=== PATIENT | male | born 1945 | race Two or more races ===

== ENCOUNTER → 2023-01-29 | Outpatient (CLI) | payer OTHER ==
[2023-01-29 08:19] LABS: Basophils # (auto) 0 10 ^3/uL (0-0.2); Eosinophils # (auto) 0.5 10 ^3/uL (0-0.8); Hematocrit 39.6 % (41.0-53.0); Lymphocytes # (auto) 0.9 10 ^3/uL (0.4-5.4); Monocytes # (auto) 0.5 10 ^3/uL (0-1.3)
[2023-01-29 08:21] LABS: Basophils % (auto) 0.7 % (0.0-2.0); Eosinophils % (auto) 8.3 % (0.0-7.0); Hemoglobin 12.6 g/dL (13.5-17.5); Lymphocytes % (auto) 14.8 % (10.0-50.0); Mean Corpuscular Hemoglobin 24.4 pg (28.0-32.0); Mean Corpuscular Hgb Conc. 31.8 g/dL (32.0-36.0); Monocytes % (auto) 8.7 % (0.0-12.0); Neutrophils % (auto) 67.5 % (37.0-80.0); Red Blood Cells 5.14 10^6/uL (4.5-5.90); Red Cell Distribution Width 16.1 % (11.8-14.3); White Blood Cell 5.9 10^3/uL (4.4-10.8)
[2023-01-29 08:40] LABS: Alanine Aminotransferase 14 U/L (7-40); Albumin 4.4 g/dL (3.2-4.8); Alkaline Phosphatase 87 U/L (46-116); Anion Gap 4 (5-15); Aspartate Aminotransferase 16 U/L (13-40); BUN/Creatinine Ratio 12.2 (10.0-20.0); Bilirubin, Total 0.7 mg/dL (0.2-1.0); Blood Urea Nitrogen 10 mg/dL (9-23); Calcium 9.3 mg/dL (8.5-10.1); Carbon Dioxide 28 mmol/L (20-30); Chloride 108 mmol/L (98-107); Cholesterol 195 mg/dL (< 200); Glucose 105 mg/dL (74-106); HDL Cholesterol 45 mg/dL (40-59); LDL Cholesterol 129 mg/dL (< 100); Potassium 4.6 mmol/L (3.5-5.1); Sodium 140 mmol/L (136-145); Triglycerides 180 mg/dL (< 150)
[2023-01-29 08:41] LABS: Total Protein 6.8 g/dL (5.7-8.2)
[2023-01-29 08:42] LABS: Urine Bacteria NONE SEEN /hpf (None Seen); Urine Blood Negative /uL (Negative); Urine Clarity Clear (Clear); Urine Protein, UAD Negative (Negative); Urine Urobilinogen Normal (Negative); Urine WBC <1 /hpf (0 - 3); Urine pH 5.5 (5.0-8.0)
[2023-01-29 08:54] LABS: Urine Color Straw (Yellow)
[2023-01-29 09:09] LABS: Uric Acid 8.4 mg/dL (3.7-9.2)
[2023-01-29 09:10] LABS: Magnesium 2.1 mg/dL (1.6-2.6)
[2023-01-29 14:42] LABS: Prostate Specific Antigen 1.39 ng/mL (0.0-4.0)
[2023-01-29 14:46] LABS: Folate (Folic Acid) 17.45 ng/mL (>5.38)
== END | disposition home or self-care (01) ==
LOC: LAB 07:56
PROVIDERS: ATTEND Internal Medicine
DX: E61.2 Magnesium deficiency (principal); E78.41 Elevated Lipoprotein(a); R68.89 Other general symptoms and signs; E79.0 Hyperuricemia without signs of inflammatory arthritis and tophaceous disease; R82.90 Unspecified abnormal findings in urine; R82.991 Hypocitraturia; R82.79 Other abnormal findings on microbiological examination of urine; D51.9 Vitamin B12 deficiency anemia, unspecified; E55.9 Vitamin D deficiency, unspecified; R94.6 Abnormal results of thyroid function studies
CPT/HCPCS: 36415; 80053; 80061; 81001; 82306; 82607; 82746; 83036; 83735; 84153; 84443; 84550; 85025; 87086

== ENCOUNTER → 2023-08-22 | Outpatient (CLI) | payer OTHER ==
[2023-08-22 08:48] LABS: Urine Bacteria None Seen /hpf (None Seen)
[2023-08-22 08:53] LABS: Basophils # (auto) 0 10 ^3/uL (0-0.2); Eosinophils # (auto) 0.4 10 ^3/uL (0-0.8); Lymphocytes # (auto) 0.9 10 ^3/uL (0.4-5.4); Monocytes # (auto) 0.5 10 ^3/uL (0-1.3); Monocytes % (auto) 8.5 % (0.0-12.0)
[2023-08-22 08:56] LABS: Basophils % (auto) 0.6 % (0.0-2.0); Eosinophils % (auto) 6.5 % (0.0-7.0); Hematocrit 37.8 % (41.0-53.0); Hemoglobin 12.2 g/dL (13.5-17.5); Lymphocytes % (auto) 14.3 % (10.0-50.0); Mean Corpuscular Hemoglobin 26.2 pg (28.0-32.0); Mean Corpuscular Hgb Conc. 32.3 g/dL (32.0-36.0); Mean Corpuscular Volume 81.3 fL (80.0-100.0); Neutrophils # (auto) 4.4 10 ^3/uL (1.6-8.6); Neutrophils % (auto) 70.1 % (37.0-80.0); Red Blood Cells 4.64 10^6/uL (4.5-5.90); Red Cell Distribution Width 14.7 % (11.8-14.3); White Blood Cell 6.3 10^3/uL (4.4-10.8)
[2023-08-22 09:12] LABS: Urine Blood Negative /uL (Negative); Urine Clarity Clear (Clear); Urine Color Yellow (Yellow); Urine Mucus FEW (None Seen); Urine Protein, UAD Negative (Negative); Urine Specific Gravity 1.025 (1.001-1.035); Urine Urobilinogen Normal (Negative); Urine WBC <1 /hpf (0 - 3); Urine pH 5.5 (5.0-9.0)
[2023-08-22 09:35] LABS: Alanine Aminotransferase 14 U/L (7-40); Albumin 4.4 g/dL (3.2-4.8); Alkaline Phosphatase 84 U/L (46-116); Anion Gap 6 (5-15); Aspartate Aminotransferase 17 U/L (13-40); BUN/Creatinine Ratio 15.4 (10.0-20.0); Bilirubin, Total 0.6 mg/dL (0.2-1.0); Blood Urea Nitrogen 12 mg/dL (9-23); Calcium 9.5 mg/dL (8.5-10.1); Carbon Dioxide 27 mmol/L (20-30); Chloride 108 mmol/L (98-107); Cholesterol 203 mg/dL (< 200); Glucose 106 mg/dL (74-106); HDL Cholesterol 44 mg/dL (40-59); LDL Cholesterol 132 mg/dL (< 100); Potassium 4.6 mmol/L (3.5-5.1); Sodium 141 mmol/L (136-145); Total Protein 6.6 g/dL (5.7-8.2); Triglycerides 204 mg/dL (< 150)
[2023-08-22 12:39] LABS: Uric Acid 6.9 mg/dL (3.7-9.2)
[2023-08-22 13:09] LABS: Folate (Folic Acid) 14.94 ng/mL (>5.38)
== END | disposition home or self-care (01) ==
LOC: LAB 08:36
PROVIDERS: ATTEND Internal Medicine
DX: R79.89 Other specified abnormal findings of blood chemistry (principal); E78.9 Disorder of lipoprotein metabolism, unspecified; R68.89 Other general symptoms and signs; E61.2 Magnesium deficiency; E85.9 Amyloidosis, unspecified; R82.90 Unspecified abnormal findings in urine; R51.9 Headache, unspecified
CPT/HCPCS: 36415; 80053; 80061; 81001; 82306; 82607; 82746; 83036; 84443; 84550; 85025; 87086

== ENCOUNTER → 2023-10-26 | Outpatient (CLI) | payer OTHER ==
[2023-10-26 07:49] LABS: Urine Bacteria None Seen /hpf (None Seen)
[2023-10-26 07:56] LABS: Basophils # (auto) 0 10 ^3/uL (0-0.2); Hemoglobin 12.1 g/dL (13.5-17.5)
[2023-10-26 07:58] LABS: Basophils % (auto) 0.5 % (0.0-2.0); Eosinophils # (auto) 0.5 10 ^3/uL (0-0.8); Eosinophils % (auto) 6.7 % (0.0-7.0); Hematocrit 36.6 % (41.0-53.0); Lymphocytes % (auto) 14.7 % (10.0-50.0); Mean Corpuscular Hemoglobin 26.1 pg (28.0-32.0); Mean Corpuscular Hgb Conc. 33.1 g/dL (32.0-36.0); Mean Corpuscular Volume 78.9 fL (80.0-100.0); Monocytes # (auto) 0.7 10 ^3/uL (0-1.3); Monocytes % (auto) 9.7 % (0.0-12.0); Neutrophils # (auto) 4.7 10 ^3/uL (1.6-8.6); Neutrophils % (auto) 68.4 % (37.0-80.0); Nucleated Red Blood Cells % 0.2 %; Red Blood Cells 4.65 10^6/uL (4.5-5.90); Red Cell Distribution Width 15.3 % (11.8-14.3); White Blood Cell 6.9 10^3/uL (4.4-10.8)
[2023-10-26 08:22] LABS: Alanine Aminotransferase 14 U/L (7-40); Albumin 4.3 g/dL (3.2-4.8); Alkaline Phosphatase 81 U/L (46-116); Anion Gap 8 (5-15); Aspartate Aminotransferase 12 U/L (13-40); BUN/Creatinine Ratio 14.5 (10.0-20.0); Blood Urea Nitrogen 12 mg/dL (9-23); Calcium 9.3 mg/dL (8.5-10.1); Carbon Dioxide 24 mmol/L (20-30); Chloride 109 mmol/L (98-107); Cholesterol 200 mg/dL (< 200); Glucose 127 mg/dL (74-106); HDL Cholesterol 41 mg/dL (40-59); LDL Cholesterol 126 mg/dL (< 100); Magnesium 2.1 mg/dL (1.6-2.6); Potassium 4.5 mmol/L (3.5-5.1); Sodium 141 mmol/L (136-145); Triglycerides 187 mg/dL (< 150)
[2023-10-26 08:23] LABS: Bilirubin, Total 0.6 mg/dL (0.2-1.0); Total Protein 6.3 g/dL (5.7-8.2)
[2023-10-26 08:38] LABS: Urine Blood Negative /uL (Negative); Urine Clarity Clear (Clear); Urine Color Yellow (Yellow); Urine Mucus FEW (None Seen); Urine Protein, UAD Negative (Negative); Urine Specific Gravity 1.025 (1.001-1.035); Urine Urobilinogen Normal (Negative); Urine WBC <1 /hpf (0 - 3); Urine pH 5.5 (5.0-9.0)
[2023-10-26 09:02] LABS: Uric Acid 6.9 mg/dL (3.7-9.2)
[2023-10-26 11:25] LABS: Folate (Folic Acid) 11.64 ng/mL (>5.38)
== END | disposition home or self-care (01) ==
LOC: LAB 07:34
PROVIDERS: ATTEND Internal Medicine
DX: I10 Essential (primary) hypertension (principal); D50.9 Iron deficiency anemia, unspecified; R73.03 Prediabetes; Z68.29 Body mass index [BMI] 29.0-29.9, adult
CPT/HCPCS: 36415; 80053; 80061; 81001; 82306; 82607; 82746; 83036; 83735; 84443; 84550; 85025; 87086

== ENCOUNTER → 2024-06-10 | Outpatient (CLI) | payer OTHER | END | disposition home or self-care (01) | LOC: LAB 11:47 | PROVIDERS: ATTEND Internal Medicine | DX: E11.65 Type 2 diabetes mellitus with hyperglycemia (principal) | CPT/HCPCS: 36415; 83036 ==

== ENCOUNTER 2024-09-26 09:41 | Outpatient (CLI) | payer OTHER ==
[2024-09-26 10:05] LABS: Basophils # (auto) 0 10 ^3/uL (0-0.2); Basophils % (auto) 0.6 % (0.0-2.0); Eosinophils # (auto) 0.5 10 ^3/uL (0-0.8); Eosinophils % (auto) 5.9 % (0.0-7.0); Hematocrit 38.3 % (41.0-53.0); Hemoglobin 12.3 g/dL (13.5-17.5); Lymphocytes # (auto) 0.9 10 ^3/uL (0.4-5.4); Lymphocytes % (auto) 11.3 % (10.0-50.0); Mean Corpuscular Hemoglobin 24.4 pg (28.0-32.0); Mean Corpuscular Hgb Conc. 32.2 g/dL (32.0-36.0); Monocytes # (auto) 0.7 10 ^3/uL (0-1.3); Monocytes % (auto) 8.3 % (0.0-12.0); Neutrophils # (auto) 5.8 10 ^3/uL (1.6-8.6); Neutrophils % (auto) 73.9 % (37.0-80.0); Nucleated Red Blood Cells % 0.1 %; Platelet Count (auto) 247 10^3/uL (140-450); Red Blood Cells 5.04 10^6/uL (4.5-5.90); Red Cell Distribution Width 16.6 % (11.8-14.3); White Blood Cell 7.9 10^3/uL (4.4-10.8)
[2024-09-26 10:09] LABS: Urine Blood Negative /uL (Negative); Urine Clarity Clear (Clear); Urine Color Light-Yellow (Yellow); Urine Protein, UAD Negative (Negative); Urine Urobilinogen Normal (Negative); Urine pH 5.5 (5.0-9.0)
[2024-09-26 10:36] LABS: Alanine Aminotransferase 22 U/L (7-40); Albumin 4.3 g/dL (3.2-4.8); Alkaline Phosphatase 87 U/L (46-116); Anion Gap 9 (5-15); Aspartate Aminotransferase 23 U/L (<34); BUN/Creatinine Ratio 15.5 (10.0-20.0); Blood Urea Nitrogen 13 mg/dL (9-23); Calcium 9.7 mg/dL (8.7-10.4); Carbon Dioxide 27 mmol/L (20-31); Chloride 107 mmol/L (98-107); Potassium 4.8 mmol/L (3.5-5.1); Sodium 143 mmol/L (136-145); Total Protein 6.6 g/dL (5.7-8.2)
[2024-09-26 10:37] LABS: Bilirubin, Total 0.5 mg/dL (0.2-1.0); Cholesterol 206 mg/dL (< 200); Glucose 127 mg/dL (74-106); HDL Cholesterol 37 mg/dL (40-59); LDL Cholesterol 140 mg/dL (< 100); Triglycerides 255 mg/dL (< 150)
[2024-09-26 13:06] LABS: Uric Acid 7.5 mg/dL (3.7-9.2)
[2024-09-26 14:30] LABS: Prostate Specific Antigen 1.47 ng/mL (0.0-4.0)
[2024-09-29 10:39] LABS: Folate (Folic Acid) 18.29 ng/mL (>5.38)
== END 2024-09-26 17:00 | disposition home or self-care (01) ==
LOC: LAB 09:41
PROVIDERS: ATTEND Internal Medicine
DX: E78.49 Other hyperlipidemia (principal); E61.2 Magnesium deficiency; R94.6 Abnormal results of thyroid function studies; E79.0 Hyperuricemia without signs of inflammatory arthritis and tophaceous disease; R82.998 Other abnormal findings in urine; E55.9 Vitamin D deficiency, unspecified; R82.90 Unspecified abnormal findings in urine; R82.79 Other abnormal findings on microbiological examination of urine; D51.9 Vitamin B12 deficiency anemia, unspecified; R68.89 Other general symptoms and signs; R73.09 Other abnormal glucose
CPT/HCPCS: 36415; 80053; 80061; 81003; 82306; 82607; 82746; 83036; 84153; 84443; 84550; 85025; 87086